=== PATIENT | male | born 2000 | race Caucasian/White ===

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

== ENCOUNTER 2020-10-05 17:37 | Emergency (ER) | payer MEDICAID, OTHER ==
[~2020-10-05] VITALS: Ht 177.8 cm; Wt 93.0 kg
--- NOTE | 2020-10-05 17:59 | ED General ---
General Chief Complaint: Neurological Problems Stated Complaint: SEIZURE ACTIVITY Source of Information: Patient History of Present Illness Date Seen by Provider: Oct 05, 2020 Time Seen by Provider: 17:50 Initial Comments PT ARRIVES VIA POV FROM HOME WITH FEMALE S.O. C/O SYNCOPAL EPISODE AND "POSSIBLE SEIZURE" PT STATES HE HAD WOKEN UP FROM A NAP, AND WAS STILL LAYING IN BED, STATES HE FELT HIS RIGHT ARM START TO SHAKE A LITTLE AND THEN "PASSED OUT". GIRLFRIEND STATES HE WAS "CONVULSING AND HIS EYES ROLLED BACK"--EPISODE LASTED 2 MINUTES, AND THEN PT WOKE UP GIRLFRIEND STATES THAT "HE HAS NEVER CONVULSED BEFORE AND NEVER COMPLETELY LOST CONSCIOUSNESS BEFORE" THIS IS ONGOING PROBLEM FOR > 1 1/2 YEARS HAS NEVER SOUGHT CARE FOR THIS PROBLEM AT ANY TIME, NO INJURY FROM THE INCIDENT NO HEADACHE NO INCONTINENCE NO CONFUSION NO VISION CHANGES NO PARESTHESIAS OR MOTOR DEFICITS NO GI SYMPTOMS NO CHEST PAIN NO PALPITATIONS NO SHORTNESS OF BREATH STATES "I JUST FEEL A LITTLE OUT OF IT" HAS BEEN ON PSYCH MEDICATIONS SINCE 09/2019-NO RECENT MEDICATION OR DOSE CHANGES NO FEVER OR RECENT ILLNESS HAS NOT BEEN OUT IN THE HEAT HAS BEEN EATING AND DRINKING NORMALLY DENIES ANY NEW STRESSORS PT HAS RECEIVED F[employer]r [employer] F[employer]r COVID-19 VACCINE JUNE 2020 PT HAS A ROUTINE APPOINTMENT AT [facility] WITH KALPESH ALLISON ON Wednesday10/08/20 AND ROUTINE FOLLOW UP WITH [facility] ON Wednesday10/11/20 PCP: [facility], KALPESH ALLISON MENTAL HEALTH: [facility] Allergies and Home Medications Allergies Coded Allergies: No Known Drug Allergies (Unverified , 10/05/20) Patient Home Medication List Home Medication List Reviewed: Yes Review of Systems Review of Systems Constitutional: see HPI; No chills, No diaphoresis, No dizziness, No fever EENTM: no symptoms reported Respiratory: no symptoms reported Cardiovascular: No chest pain, No edema, No palpitations; syncope; No vascular heart diseas Gastrointestinal: no symptoms reported Genitourinary: no symptoms reported Musculoskeletal: no symptoms reported Skin: no symptoms reported Psychiatric/Neurological: See HPI; Denies Headache, Denies Numbness, Denies Paresthesia, Denies Tingling, Denies Weakness Hematologic/Lymphatic: No Symptoms Reported Immunological/Allergic: no symptoms reported Past Zecjodr-Ooiufn-Fzoogr Hx Patient Social History Tobacco Use?: No Smoking Status: Never a Smoker Use of E-Cig and/or Vaping Tal: Never a User Substance use?: Yes Substance type: Marijuana Substance frequency: Daily Alcohol Use?: Yes Alcohol Frequency: Several times a month Immunizations Up To Date First/Initial COVID19 Vaccinat: JUNE 2020 COVID19 Vaccine Caponizer: [facility] Seasonal Allergies Seasonal Allergies: No Past Medical History Surgeries: No Respiratory: No Cardiac: No Neurological: No Genitourinary: No Gastrointestinal: No Musculoskeletal: No Endocrine: No HEENT: No Cancer: No Psychosocial: Yes Anxiety, Depression Physical Exam Vital Signs Vital Signs - First Documented 10/05/20 17:47 Temp 36.9 Pulse 58 Resp 17 B/P (MAP) 122/85 (97) O2 Delivery Room Air Capillary Refill : Height, Weight, BMI Height: '" Weight: lbs. oz. kg; BMI Method: General Appearance: No Apparent Distress, WD/WN, Other (AMBULATED IN ON HIS OWN WITHOUT DIFFICULTY) HEENT: PERRL/EOMI, TMs Normal, Normal ENT Inspection, Pharynx Normal Neck: Full Range of Motion, Normal Inspection, Non Tender, Supple Respiratory: Normal Breath Sounds, No Accessory Muscle Use, No Respiratory Distress Cardiovascular: Regular Rate, Rhythm, No Edema, No Gallop, No JVD, No Murmur, Normal Peripheral Pulses Gastrointestinal: Non Tender, Soft Back: Normal Inspection Extremity: Normal Capillary Refill, Normal Inspection, No Pedal Edema Neurologic/Psychiatric: Alert, Oriented x3, No Motor/Sensory Deficits, Normal Mood/Affect, window framer II-XII Norm as Tested; No Abnormal Cerebellar Tests Skin: Normal Color, Warm/Dry; No Rash Progress/Results/Core Measures Suspected Sepsis SIRS Temperature: Pulse: Respiratory Rate: Laboratory Tests 10/05/20 18:06: White Blood Count 7.0 Blood Pressure / Mean: Laboratory Tests 10/05/20 18:06: Creatinine 1.01, Platelet Count 292, Total Bilirubin 0.4 Results/Orders Lab Results Laboratory Tests Test 10/05/20 18:06 10/05/20 18:53 Range/Units White Blood Count 7.0 4.3-11.0 10^3/uL Red Blood Count 5.05 4.30-5.52 10^6/uL Hemoglobin 15.5 13.3-17.7 g/dL Hematocrit 44 40-54 % Mean Corpuscular Volume 87 80-99 fL Mean Corpuscular Hemoglobin 31 25-34 pg Mean Corpuscular Hemoglobin Concent 35 32-36 g/dL Red Cell Distribution Width 12.0 10.0-14.5 % Platelet Count 292 130-400 10^3/uL Mean Platelet Volume 9.0 9.0-12.2 fL Immature Granulocyte % (Auto) 0 % Neutrophils (%) (Auto) 47 42-75 % Lymphocytes (%) (Auto) 39 12-44 % Monocytes (%) (Auto) 9 0-12 % Eosinophils (%) (Auto) 5 0-10 % Basophils (%) (Auto) 1 0-10 % Neutrophils # (Auto) 3.3 1.8-7.8 10^3/uL Lymphocytes # (Auto) 2.8 1.0-4.0 10^3/uL Monocytes # (Auto) 0.6 0.0-1.0 10^3/uL Eosinophils # (Auto) 0.3 0.0-0.3 10^3/uL Basophils # (Auto) 0.1 0.0-0.1 10^3/uL Immature Granulocyte # (Auto) 0.0 0.0-0.1 10^3/uL Sodium Level 145 135-145 MMOL/L Potassium Level 3.8 3.6-5.0 MMOL/L Chloride Level 105 98-107 MMOL/L Carbon Dioxide Level 26 21-32 MMOL/L Anion Gap 14 5-14 MMOL/L Blood Urea Nitrogen 12 7-18 MG/DL Creatinine 1.01 0.60-1.30 MG/DL Estimat Glomerular Filtration Rate 92 BUN/Creatinine Ratio 12 Glucose Level 81 70-105 MG/DL Calcium Level 9.5 8.5-10.1 MG/DL Corrected Calcium 9.3 8.5-10.1 MG/DL Magnesium Level 1.9 1.6-2.4 MG/DL Total Bilirubin 0.4 0.1-1.0 MG/DL Aspartate Amino Transf (AST/SGOT) 29 5-34 U/L Alanine Aminotransferase (ALT/SGPT) 59 H 0-55 U/L Alkaline Phosphatase 36 L 40-136 U/L Total Creatine Kinase 124 30-200 U/L Creatine Kinase MB 0.8 <6.6 NG/ML Myoglobin 25.6 10.0-92.0 NG/ML Troponin I < 0.028 <0.028 NG/ML C-Reactive Protein High Sensitivity 0.10 0.00-0.50 MG/DL Total Protein 7.7 6.4-8.2 GM/DL Albumin 4.2 3.2-4.5 GM/DL TSH [place] Testing 1.87 0.35-4.94 UIU/ML Serum Alcohol < 10 <10 MG/DL Urine Color YELLOW Urine Clarity CLEAR Urine pH 7.0 5-9 Urine Specific [place] 1.020 1.016-1.022 Urine Protein NEGATIVE NEGATIVE Urine Glucose (UA) NEGATIVE NEGATIVE Urine Ketones NEGATIVE NEGATIVE Urine Nitrite NEGATIVE NEGATIVE Urine Bilirubin NEGATIVE NEGATIVE Urine Urobilinogen 0.2 < = 1.0 MG/DL Urine Leukocyte Esterase NEGATIVE NEGATIVE Urine RBC (Auto) NEGATIVE NEGATIVE Urine RBC NONE /HPF Urine WBC RARE /HPF Urine Squamous Epithelial Cells RARE /HPF Urine Crystals PRESENT H /LPF Urine Amorphous Sediment MOD LUZ PHOSPHATE H /LPF Urine Bacteria FEW H /HPF Urine Casts NONE /LPF Urine Mucus NEGATIVE /LPF Urine Other FEW SPERM H /HPF Urine Culture Indicated YES Urine Opiates Screen NEGATIVE NEGATIVE Urine Oxycodone Screen NEGATIVE NEGATIVE Urine Methadone Screen NEGATIVE NEGATIVE Urine Propoxyphene Screen NEGATIVE NEGATIVE Urine Barbiturates Screen NEGATIVE NEGATIVE Ur Tricyclic Antidepressants Screen NEGATIVE NEGATIVE Urine Phencyclidine Screen NEGATIVE NEGATIVE Urine Amphetamines Screen NEGATIVE NEGATIVE Urine Methamphetamines Screen NEGATIVE NEGATIVE Urine Benzodiazepines Screen NEGATIVE NEGATIVE Urine Cocaine Screen NEGATIVE NEGATIVE Urine Cannabinoids Screen POSITIVE H NEGATIVE My Orders Orders - DANNI WOLFE DO Ct Head Wo (10/05/20 18:10) Creatine Kinase (10/05/20 18:10) Creatine Kinase Mb (10/05/20 18:10) Magnesium (10/05/20 18:10) Thyroid Analyzer (10/05/20 18:10) Myoglobin Serum (10/05/20 18:10) Ed Iv/Invasive Line Start (10/05/20 18:42) Lactated Ringers (Lr 1000 Ml Iv Solution (10/05/20 18:45) Medications Given in ED Current Medications Medications Dose Ordered Sig/Pedro Route Start Time Stop Time Status Last Admin Dose Admin Lactated Ringer's 1,000 ml @ 0 mls/hr Q0M ONCE IV 10/05/20 18:45 10/05/20 18:46 DC 10/05/20 18:52 999 MLS/HR Vital Signs/I&O 10/05/20 10/05/20 17:47 18:21 Temp 36.9 Pulse 58 57 62 75 Resp 17 B/P (MAP) 122/85 (97) 111/70 (84) 101/73 (82) 113/72 (86) O2 Delivery Room Air Capillary Refill : Progress Note : Progress Note ASYMPTOMATIC DURING ENTIRE ER STAY DISCUSSED AT LENGTH WITH PT AND GIRLFRIEND ABOUT POSSIBLE CAUSES, AND POSSIBLE NEED FOR NEUROLOGIST EVALUATION, WHICH CAN BE DONE THROUGH [facility], AND PT CAN DISCUSS THIS AT HIS APPOINTMENT ON WEDNESDAY WITH KALPESH ALLISON ADVISED OF NO DRIVING FOR A MINIMUM OF 6 MONTHS ECG Initial ECG Impression Date: Oct 05, 2020 Initial ECG Impression Time: 18:14 Initial ECG Rate: 53 Initial ECG Rhythm: Normal Sinus Diagnostic Imaging Comments CT HEAD--NO ACUTE PROCESS, PER RADIOLOGIST REPORT AT 1853 Reviewed: Reviewed by Me Departure Impression Primary Impression: Syncope Additional Impressions: Marijuana use REPORTED SEIZURE LIKE ACTIVITY Disposition: 01 HOME, SELF-CARE Condition: Stable Departure-Patient Inst. Decision time for Depature: 19:19 Referrals: [facility] (PCP) Primary Care Physician KEVIN ALLISON (Family) Primary Care Physician Patient Instructions: Drug Abuse and Drug Addiction (DC), Marijuana Use and Addiction (DC), Syncope (Fainting) (DC) Add. Discharge Instructions: NO MARIJUANA OR ANY OTHER DRUGS INCREASE YOUR FLUID INTAKE--WATER, BROTH, JELLO, GATORADE CONTINUE YOUR REGULAR MEDICATIONS PRESCRIBED FOLLOW UP WITH [facility] THIS WEEK FOR FURTHER CARE, SCHEDULED NO DRIVING UNTIL YOU ARE CLEARED BY All discharge instructions reviewed with patient and/or family. Voiced understanding. DANNI WOLFE DO Oct 05, 2020 17:59
[2020-10-05 18:13] LABS: BASOPHILS # (AUTO) 0.1 10^3/uL (0.0-0.1); BASOPHILS % (AUTO) 1 % (0-10); EOSINOPHILS # (AUTO) 0.3 10^3/uL (0.0-0.3); EOSINOPHILS % (AUTO) 5 % (0-10); HEMATOCRIT 44 % (40-54); HEMOGLOBIN 15.5 g/dL (13.3-17.7); LYMPHOCYTES # (AUTO) 2.8 10^3/uL (1.0-4.0); LYMPHOCYTES % (AUTO) 39 % (12-44); MEAN CORPUSCULAR HEMOGLOBIN 31 pg (25-34); MEAN CORPUSCULAR HGB CONC 35 g/dL (32-36); MEAN CORPUSCULAR VOLUME 87 fL (80-99); MONOCYTES # (AUTO) 0.6 10^3/uL (0.0-1.0); MONOCYTES % (AUTO) 9 % (0-12); NEUTROPHILS # (AUTO) 3.3 10^3/uL (1.8-7.8); NEUTROPHILS % (AUTO) 47 % (42-75); PLATELET COUNT 292 10^3/uL (130-400)
[2020-10-05 18:21] VITALS: BP_SYST 101; BP_SYST 111; BP_SYST 113; BP_DIAS 70; BP_DIAS 72; BP_DIAS 73
[2020-10-05 18:28] LABS: ALBUMIN 4.2 GM/DL (3.2-4.5); CHLORIDE 105 MMOL/L (98-107); POTASSIUM 3.8 MMOL/L (3.6-5.0); SODIUM 145 MMOL/L (135-145)
[2020-10-05 18:30] LABS: CALCIUM 9.5 MG/DL (8.5-10.1)
[2020-10-05 18:31] LABS: GLUCOSE 81 MG/DL (70-105); TOTAL PROTEIN 7.7 GM/DL (6.4-8.2)
[2020-10-05 18:32] LABS: CARBON DIOXIDE 26 MMOL/L (21-32)
[2020-10-05 18:33] LABS: BILIRUBIN,TOTAL 0.4 MG/DL (0.1-1.0)
[2020-10-05 18:34] LABS: ALKALINE PHOSPHATASE 36 U/L (40-136)
[2020-10-05 18:35] LABS: CREATININE SERUM 1.01 MG/DL (0.60-1.30); GFR ESTIMATED 92
[2020-10-05 18:36] LABS: BUN/CREATININE RATIO 12
[2020-10-05 18:37] LABS: MAGNESIUM 1.9 MG/DL (1.6-2.4)
[2020-10-05 18:38] LABS: ALANINE AMINOTRANSFERASE 59 U/L (0-55)
[2020-10-05] MEDS ORDERED: LACTATED RINGERS 1,000 ML IV ONE (18:45)
[2020-10-05 18:46] LABS: CREATINE KINASE MB 0.8 NG/ML (<6.6)
--- NOTE | 2020-10-05 18:47 | Diagnostic Imaging Report ---
EXAMINATION: CT head without contrast. TECHNIQUE: Multiple contiguous axial images were obtained through the brain without the use of intravenous contrast. All CT scans use one or more of the following dose optimizing techniques: automated exposure control, MA and/or KvP adjustment based on patient size and exam type or iterative reconstruction. HISTORY: Syncopal episode. Seizure like activity. COMPARISON: 08/24/2007. FINDINGS: No large acute territorial ischemia, mass or hemorrhage. No midline shift or mass effect. The ventricles, cortical sulci and basilar cisterns are patent and unremarkable. The orbits are normal. Paranasal sinuses are normal. Mastoid air cells are clear. No soft tissue abnormality is seen. No osseus lesion or fracture is seen. IMPRESSION: No large acute territorial ischemia, mass or hemorrhage. Dictated by: Dictated on workstation # [id number]
[2020-10-05 18:58] LABS: TSH (THYROID ANALYZER) 1.87 UIU/ML (0.35-4.94)
[2020-10-05 18:59] LABS: BILIRUBIN,URINE NEGATIVE (NEGATIVE); CLARITY,URINE CLEAR; COLOR,URINE YELLOW; GLUCOSE, URINE (UA) NEGATIVE (NEGATIVE); KETONES,URINE NEGATIVE (NEGATIVE); LEUKOCYTE ESTERASE ,URINE NEGATIVE (NEGATIVE); NITRITE,URINE NEGATIVE (NEGATIVE); PROTEIN,URINE NEGATIVE (NEGATIVE)
[2020-10-05 19:13] LABS: AMORPHOUS SEDIMENT,UR MOD AMOR PHOSPHATE /LPF; BACTERIA,URINE FEW /HPF; SQUAMOUS EPITHELIAL CELL,UR RARE /HPF; URINE OTHER FEW SPERM /HPF; WBC,URINE RARE /HPF
[2020-10-05 19:15] LABS: AMPHETAMINE SCREEN, URINE NEGATIVE (NEGATIVE); BARBITURATE SCREEN URINE NEGATIVE (NEGATIVE); BENZODIAZEPINES SCREEN URINE NEGATIVE (NEGATIVE); CANNABINOID SCREEN, URINE POSITIVE (NEGATIVE); COCAINE SCREEN URINE NEGATIVE (NEGATIVE); METHADONE STAT NEGATIVE (NEGATIVE); METHAMPHETAMINE SCREEN URINE S NEGATIVE (NEGATIVE); OPIATE SCREEN URINE NEGATIVE (NEGATIVE); OXYCODONE STAT NEGATIVE (NEGATIVE); PROPOXYPHENE STAT NEGATIVE (NEGATIVE); TRICYCLIC ANTIDEPRESSANTS SCRE NEGATIVE (NEGATIVE)
[2020-10-05 19:37] VITALS: BP 114/84
== END 2020-10-05 19:37 | disposition home or self-care (01) ==
LOC: EDUNIT# 17:37 → ER 17:40
DX: R55 Syncope and collapse (principal); F12.90 Cannabis use, unspecified, uncomplicated; R29.818 Other symptoms and signs involving the nervous system
CPT/HCPCS: 36415; 70450; 80053; 80306; 80320; 81000; 82550; 82553; 83735; 83874; 84443; 84484; 85025; 86141; 87088; 93005

== ENCOUNTER 2021-02-10 12:03 | Emergency (ER) | payer OTHER ==
[~2021-02-10] VITALS: Ht 175 cm; Wt 95.2 kg
[2021-02-10] MEDS ORDERED: LORazepam INJ 2 MG/ML (ATIVAN) VIAL IVP ONE (13:30)
--- NOTE | 2021-02-10 13:34 | ED Neurological Problem ---
General Chief Complaint: Neurological Problems Stated Complaint: SEIZURES Nursing Triage Note: pt presents to ed via pov from home with complaints of intermittent seizures. pt sig other reports pt is seeing a neurologist and recently had testing done but doesnt know the results yet. pt also stoppeed taking two psych meds for mood stability last week because he rean out. pt sig other reports what they are most concerned about is a small amount of blood that the pt spit up after the seizure on the way to ed. pt was able to stand and transfer self to ed cot without difficulty. Source: patient Exam Limitations: no limitations (MICHELLE DIAS APRN) History of Present Illness Date Seen by Provider: Feb 10, 2021 Time Seen by Provider: 13:31 Initial Comments To ER with seizure-like activity. He has been seen by neurology over at [place] and had MRI, EEG done last week and they They are awaiting those reports. Today he spent most of his time "out of it" and mentions some blood on her hand during one of his seizures. They are not sure where this originated. No bleeding since then. He stopped his psychiatric medications a week and a half ago which looks like it was fluoxetine and olanzapine based on external medication summary though he is not talking at the moment and does not know what they were. Timing/Duration: 1 week Associated Symptoms: denies symptoms (MICHELLE DIAS APRN) Allergies and Home Medications Allergies Coded Allergies: No Known Drug Allergies (Unverified , 10/05/20) Patient Home Medication List Home Medication List Reviewed: Yes (MICHELLE DIAS APRN) Divalproex Sodium (Depakote) 500 Mg Tablet.dr, 500 MG PO BID Prescribed by: MICHELLE DIAS on 02/10/21 1524 Review of Systems Review of Systems Constitutional: see HPI Eyes: No Symptoms Reported Respiratory: no symptoms reported Cardiovascular: no symptoms reported Genitourinary: no symptoms reported Musculoskeletal: no symptoms reported Skin: no symptoms reported Psychiatric/Neurological: See HPI Endocrine: No Symptoms Reported (MICHELLE DIAS APRN) Past Ciqdmeb-Fblukl-Zruecs Hx Patient Social History Tobacco Use?: Yes Tobacco type used: Cigarettes Smoking Status: Current Someday Smoker Use of E-Cig and/or Vaping Tal: Current Someday User Substance use?: Yes Substance type: Marijuana Substance frequency: Daily Alcohol Use?: Yes Alcohol Frequency: Rarely Pt feels they are or have been: No (MICHELLE DIAS APRN) Immunizations Up To Date First/Initial COVID19 Vaccinat: JUNE 2020 Second COVID19 Vaccination [place]: JUNE 2020 Third COVID19 Vaccination Date: JUNE 2020 COVID19 Vaccine Contract Administrator: alexandra (MICHELLE DIAS APRN) Seasonal Allergies Seasonal Allergies: No (MICHELLE DIAS APRN) Past Medical History Surgery/Hospitalization HX: seizures Surgeries: No Respiratory: No Cardiac: No Neurological: No Genitourinary: No Gastrointestinal: No Musculoskeletal: No Endocrine: No HEENT: No Cancer: No Psychosocial: Yes Anxiety, Depression (MICHELLE DIAS APRN) Physical Exam Vital Signs Vital Signs - First Documented 02/10/21 12:34 Temp 36.4 Pulse 63 Resp 18 B/P (MAP) 129/85 (100) Pulse Ox 97 (TRINI ROA MD) Vital Signs Capillary Refill : Less Than 3 Seconds (MICHELLE DIAS APRN) Height, Weight, BMI Height: '" Weight: lbs. oz. kg; 31.00 BMI Method: General Appearance: WD/WN, no apparent distress, other (Deep rapid breathing, reported to his that he cannot feel either of his hands though he is nonverbal currently. He keeps his eyes closed. When I lift his eyelids open he is noted to have crossed eyes. Let them close again and when I try to open his mouth with the tongue blade he opens his eyes which are no longer crossed.) Neck: non-tender, full range of motion Respiratory: no respiratory distress, no accessory muscle use Gastrointestinal: normal bowel sounds, non tender Extremities: normal range of motion, non-tender Neurologic/Psychiatric: alert [place] Nerves: normal hearing, normal speech, PERRL Skin: normal color, warm/dry (MICHELLE DIAS APRN) Progress/Results/Core Measures Results/Orders Lab Results Laboratory Tests Test 02/10/21 13:43 02/10/21 14:52 Range/Units White Blood Count 7.1 4.3-11.0 10^3/uL Red Blood Count 5.01 4.30-5.52 10^6/uL Hemoglobin 15.4 13.3-17.7 g/dL Hematocrit 44 40-54 % Mean Corpuscular Volume 88 80-99 fL Mean Corpuscular Hemoglobin 31 25-34 pg Mean Corpuscular Hemoglobin Concent 35 32-36 g/dL Red Cell Distribution Width 12.5 10.0-14.5 % Platelet Count 315 130-400 10^3/uL Mean Platelet Volume 8.9 L 9.0-12.2 fL Immature Granulocyte % (Auto) 1 % Neutrophils (%) (Auto) 50 42-75 % Lymphocytes (%) (Auto) 33 12-44 % Monocytes (%) (Auto) 11 0-12 % Eosinophils (%) (Auto) 6 0-10 % Basophils (%) (Auto) 1 0-10 % Neutrophils # (Auto) 3.5 1.8-7.8 10^3/uL Lymphocytes # (Auto) 2.3 1.0-4.0 10^3/uL Monocytes # (Auto) 0.8 0.0-1.0 10^3/uL Eosinophils # (Auto) 0.4 H 0.0-0.3 10^3/uL Basophils # (Auto) 0.0 0.0-0.1 10^3/uL Immature Granulocyte # (Auto) 0.0 0.0-0.1 10^3/uL Sodium Level 136 135-145 MMOL/L Potassium Level 4.2 3.6-5.0 MMOL/L Chloride Level 103 98-107 MMOL/L Carbon Dioxide Level 24 21-32 MMOL/L Anion Gap 9 5-14 MMOL/L Blood Urea Nitrogen 12 7-18 MG/DL Creatinine 0.79 0.60-1.30 MG/DL Estimat Glomerular Filtration Rate 123 BUN/Creatinine Ratio 15 Glucose Level 85 70-105 MG/DL Calcium Level 8.9 8.5-10.1 MG/DL Corrected Calcium 8.8 8.5-10.1 MG/DL Total Bilirubin 0.4 0.1-1.0 MG/DL Aspartate Amino Transf (AST/SGOT) 55 H 5-34 U/L Alanine Aminotransferase (ALT/SGPT) 88 H 0-55 U/L Alkaline Phosphatase 43 40-136 U/L Total Protein 8.1 6.4-8.2 GM/DL Albumin 4.1 3.2-4.5 GM/DL Urine Color YELLOW Urine Clarity CLEAR Urine pH 7.0 5-9 Urine Specific [place] 1.020 1.016-1.022 Urine Protein NEGATIVE NEGATIVE Urine Glucose (UA) NEGATIVE NEGATIVE Urine Ketones NEGATIVE NEGATIVE Urine Nitrite NEGATIVE NEGATIVE Urine Bilirubin NEGATIVE NEGATIVE Urine Urobilinogen 0.2 < = 1.0 MG/DL Urine Leukocyte Esterase NEGATIVE NEGATIVE Urine RBC (Auto) NEGATIVE NEGATIVE Urine RBC NONE /HPF Urine WBC RARE /HPF Urine Squamous Epithelial Cells RARE /HPF Urine Crystals NONE /LPF Urine Bacteria FEW H /HPF Urine Casts NONE /LPF Urine Mucus SMALL H /LPF Urine Culture Indicated YES Urine Opiates Screen NEGATIVE NEGATIVE Urine Oxycodone Screen NEGATIVE NEGATIVE Urine Methadone Screen NEGATIVE NEGATIVE Urine Propoxyphene Screen NEGATIVE NEGATIVE Urine Barbiturates Screen NEGATIVE NEGATIVE Ur Tricyclic Antidepressants Screen NEGATIVE NEGATIVE Urine Phencyclidine Screen NEGATIVE NEGATIVE Urine Amphetamines Screen NEGATIVE NEGATIVE Urine Methamphetamines Screen NEGATIVE NEGATIVE Urine Benzodiazepines Screen NEGATIVE NEGATIVE Urine Cocaine Screen NEGATIVE NEGATIVE Urine Cannabinoids Screen POSITIVE H NEGATIVE (TRINI ROA MD) Medications Given in ED Current Medications Medications Dose Ordered Sig/Pedro Route Start Time Stop Time Status Last Admin Dose Admin Lorazepam 1 mg ONCE ONCE IVP 02/10/21 13:30 02/10/21 13:31 DC 02/10/21 13:39 1 MG (TRINI ROA MD) Vital Signs/I&O 02/10/21 02/10/21 12:34 15:26 Temp 36.4 Pulse 63 66 Resp 18 18 B/P (MAP) 129/85 (100) 122/78 Pulse Ox 97 96 (TRINI ROA MD) Blood Pressure Mean: 100 Departure Communication (Admissions) 1458-patients states that he was on olanzapine and Zyprexa for about 1 month before discontinuing it. Did not notice any improvement while on it. They report that this was for "mood stabilization" but they do not know what the underlying diagnosis was. She believes it to just be anxiety and depression. Depakote would be a good choice for him. No seizure like activity. After 1 mg of IV lorazepam he is lethargic but arousable to verbal stimuli and moves his hands to which his replies "oh your hands are working again, that improvement" as shortly after he arrived he complained of alleged loss of motor function to both hands to his but I was unable to get this information out of him as he would not talk.. He opens his eyes during conversation now and they are still not crossed. He was able to stand to give us a urine sample. (MICHELLE DIAS APRN) Impression Primary Impression: Seizure-like activity Disposition: 01 HOME, SELF-CARE Condition: Stable Departure-Patient Inst. Decision time for Depature: 14:59 (MICHELLE DIAS APRN) Referrals: [facility] (PCP) Primary Care Physician KEVIN ALLISON (Family) Primary Care Physician Patient Instructions: NO INSTRUCTIONS GIVEN Add. Discharge Instructions: 1. Return to ER for any concerns 2. Follow-up with your doctor next week All discharge instructions reviewed with patient and/or family. Voiced understanding. Scripts Divalproex Sodium (Depakote) 500 Mg Tablet. 500 MG PO BID, #20 TAB . Prov: MICHELLE DIAS APRN 02/10/21 ATTENDING PHYSICIAN NOTE: I was physically present as attending physician in the emergency department during the care of this patient, but I was not directly involved in the decision making or delivery of care for this patient. (TRINI ROA MD) MICHELLE DIAS APRN Feb 10, 2021 13:34 TRINI ROA MD Feb 10, 2021 18:28
[2021-02-10 13:54] LABS: BASOPHILS % (AUTO) 1 % (0-10); EOSINOPHILS # (AUTO) 0.4 10^3/uL (0.0-0.3); EOSINOPHILS % (AUTO) 6 % (0-10); HEMATOCRIT 44 % (40-54); HEMOGLOBIN 15.4 g/dL (13.3-17.7); LYMPHOCYTES # (AUTO) 2.3 10^3/uL (1.0-4.0); LYMPHOCYTES % (AUTO) 33 % (12-44); MEAN CORPUSCULAR HEMOGLOBIN 31 pg (25-34); MEAN CORPUSCULAR HGB CONC 35 g/dL (32-36); MEAN CORPUSCULAR VOLUME 88 fL (80-99); MEAN PLATELET VOLUME 8.9 fL (9.0-12.2); MONOCYTES # (AUTO) 0.8 10^3/uL (0.0-1.0); MONOCYTES % (AUTO) 11 % (0-12); NEUTROPHILS # (AUTO) 3.5 10^3/uL (1.8-7.8); NEUTROPHILS % (AUTO) 50 % (42-75); PLATELET COUNT 315 10^3/uL (130-400); WHITE BLOOD COUNT 7.1 10^3/uL (4.3-11.0)
[2021-02-10 14:04] LABS: ALBUMIN 4.1 GM/DL (3.2-4.5); POTASSIUM 4.2 MMOL/L (3.6-5.0)
[2021-02-10 14:05] LABS: CALCIUM 8.9 MG/DL (8.5-10.1)
[2021-02-10 14:06] LABS: TOTAL PROTEIN 8.1 GM/DL (6.4-8.2)
[2021-02-10 14:08] LABS: BILIRUBIN,TOTAL 0.4 MG/DL (0.1-1.0)
[2021-02-10 14:10] LABS: CREATININE SERUM 0.79 MG/DL (0.60-1.30)
[2021-02-10 14:55] LABS: BILIRUBIN,URINE NEGATIVE (NEGATIVE); CLARITY,URINE CLEAR; COLOR,URINE YELLOW; GLUCOSE, URINE (UA) NEGATIVE (NEGATIVE); KETONES,URINE NEGATIVE (NEGATIVE); LEUKOCYTE ESTERASE ,URINE NEGATIVE (NEGATIVE); NITRITE,URINE NEGATIVE (NEGATIVE); PROTEIN,URINE NEGATIVE (NEGATIVE)
[2021-02-10] MEDS ORDERED: DIVA500T PO ×2 (15:01→15:24)
[2021-02-10 15:06] LABS: BACTERIA,URINE FEW /HPF; SQUAMOUS EPITHELIAL CELL,UR RARE /HPF; WBC,URINE RARE /HPF
[2021-02-10 15:08] LABS: AMPHETAMINE SCREEN, URINE NEGATIVE (NEGATIVE); BARBITURATE SCREEN URINE NEGATIVE (NEGATIVE); BENZODIAZEPINES SCREEN URINE NEGATIVE (NEGATIVE); CANNABINOID SCREEN, URINE POSITIVE (NEGATIVE); COCAINE SCREEN URINE NEGATIVE (NEGATIVE); METHADONE STAT NEGATIVE (NEGATIVE); METHAMPHETAMINE SCREEN URINE S NEGATIVE (NEGATIVE); OPIATE SCREEN URINE NEGATIVE (NEGATIVE); OXYCODONE STAT NEGATIVE (NEGATIVE); PROPOXYPHENE STAT NEGATIVE (NEGATIVE); TRICYCLIC ANTIDEPRESSANTS SCRE NEGATIVE (NEGATIVE)
[2021-02-10 15:26] VITALS: BP 122/78
[2021-02-10] MEDS ORDERED: HYDR50CA3 PO (22:22)
== END 2021-02-10 15:26 | disposition home or self-care (01) ==
LOC: EDUNIT# 12:03 → ER 12:04
DX: R25.9 Unspecified abnormal involuntary movements (principal); F12.20 Cannabis dependence, uncomplicated; F41.9 Anxiety disorder, unspecified; F32.9 Major depressive disorder, single episode, unspecified; F17.210 Nicotine dependence, cigarettes, uncomplicated; Z79.899 Other long term (current) drug therapy
CPT/HCPCS: 36415; 80053; 80306; 81000; 85025; 87088

== ENCOUNTER 2021-02-10 20:50 | Emergency (ER) | payer OTHER ==
[~2021-02-10] VITALS: Ht 175.2 cm; Wt 95.2 kg
[~2021-02-10 20:50] MED LIST: DIVA500T PO
[2021-02-10 21:29] LABS: BASOPHILS # (AUTO) 0.1 10^3/uL (0.0-0.1); BASOPHILS % (AUTO) 1 % (0-10); EOSINOPHILS # (AUTO) 0.4 10^3/uL (0.0-0.3); EOSINOPHILS % (AUTO) 5 % (0-10); HEMATOCRIT 48 % (40-54); HEMOGLOBIN 16.3 g/dL (13.3-17.7); LYMPHOCYTES % (AUTO) 34 % (12-44); MEAN CORPUSCULAR HEMOGLOBIN 30 pg (25-34); MEAN CORPUSCULAR HGB CONC 34 g/dL (32-36); MEAN CORPUSCULAR VOLUME 89 fL (80-99); MEAN PLATELET VOLUME 8.8 fL (9.0-12.2); MONOCYTES % (AUTO) 11 % (0-12); NEUTROPHILS # (AUTO) 4.4 10^3/uL (1.8-7.8); NEUTROPHILS % (AUTO) 50 % (42-75); PLATELET COUNT 355 10^3/uL (130-400); WHITE BLOOD COUNT 8.9 10^3/uL (4.3-11.0)
[2021-02-10] MEDS ORDERED: LACTATED RINGERS 1,000 ML IV ONE (21:30)
--- NOTE | 2021-02-10 21:30 | ED General ---
General Stated Complaint: SEIZURES Source of Information: Patient, Old Records History of Present Illness Date Seen by Provider: Feb 10, 2021 Time Seen by Provider: 19:05 Initial Comments PT ARRIVES VIA POV FROM HOME, WITH GIRLFRIEND AND HIS MOTHER ( GIRLFRIEND BECAME EXTREMELY BELLIGERENT ON ARRIVAL IN THE ROOM AND SHE WAS ASKED TO LEAVE BY ER STAFF, AND THEN PT'S MOTHER CAME IN ROOM AND WAS VERY CALM AND COOPERATIVE AND RESPECTFUL TO STAFF) PT SEEN IN ER THIS AFTER NOON FOR SEIZURE LIKE ACTIVITY, WORK UP NEGATIVE AT THAT TIME. WAS GIVEN RX FOR DEPAKOTE, WHICH HE HAS NOT TAKEN YET. PT WAS GIVEN LORAZEPAM WHILE IN ER AT THAT TIME. PT RETURNS TONIGHT, BECAUSE HE HAS BEEN "UNRESPONSIVE" AND "OUT OF IT" ALL DAY--PT IS AWAKE AND WALKS INTO ER ON HIS OWN, AND IS TALKING AND IS ALERT AND ORIENTED X 4 AND VERY COOPERATIVE PT HAS HISTORY OF PSYCH ISSUES AND STOPPED TAKING / RAN OUT OF HIS PSYCH MEDICATIONS 1 1/2 WEEKS AGO--FLUOXETINE AND OLANZAPINE--AND PT AND MOTHER REPORT THAT [facility] WILL NOT REFILL THEM--HAD ONLY BEEN ON THEM FOR A MONTH AND THEN RAN OUT AND DID NOT FOLLOW UP PT HAS NOT SEEN ANYONE FROM [facility] OR WITH [facility] IN OVER A MONTH PT ADMITS TO BEING UNDER MUCH STRESS--FINANCIALLY AND WITH GIRLFRIEND. PT IS ALSO IN THE PROCESS OF BEING EVALUATED BY AN UNKNOWN NEUROLOGIST AT [facility] IN [place] FOR POSSIBLE SEIZURES--HAS BEEN HAVING "EPISODES" FOR OVER 1 1/2 YEARS, AND HAS NOT SEEN A NEUROLOGIST UNTIL PT HAS SEEN HIM ONE TIME AND HAD OUTPATIENT MRI AND EEG DONE LAST WEEK, AND HAS A FOLLOW UP APPOINTMENT IN FEBRUARY--RESULTS OF TESTS ARE NOT KNOWN AT THIS TIME. PT HAS HAD REPORTED "SEIZURE-LIKE" ACTIVITY SEVERAL TIMES TODAY. THERE IS NO INCONTINENCE OR INJURY WITH ANY OF THESE EPISODES. NO HEADACHE NO DIZZINESS NO VISION CHANGES NO NAUSEA/VOMITING NO PARESTHESIAS OR MOTOR DEFICITS NO FEVER OR RECENT ILLNESS NO KNOWN SICK CONTACTS PT HAS HAD FAYE/FAYE COVID-19 VACCINE X 1 IN JUNE 2020 PCP: [facility]: [facility] NEUROLOGIST--UNKNOWN NAME OF AT [facility] Allergies and Home Medications Allergies Coded Allergies: No Known Drug Allergies (Unverified , 10/05/20) Patient Home Medication List Home Medication List Reviewed: Yes Divalproex Sodium (Depakote) 500 Mg Tablet.dr, 500 MG PO BID Prescribed by: MICHELLE DIAS on 02/10/21 1524 Hydroxyzine Pamoate (Hydroxyzine Pamoate) 50 Mg Capsule, 50 MG PO Q6H PRN for ANXIETY Prescribed by: DANNI WOLFE on 02/10/21 2222 Review of Systems Review of Systems Constitutional: no symptoms reported EENTM: no symptoms reported Respiratory: no symptoms reported Cardiovascular: no symptoms reported Gastrointestinal: no symptoms reported Genitourinary: no symptoms reported Musculoskeletal: no symptoms reported Skin: no symptoms reported Psychiatric/Neurological: See HPI Hematologic/Lymphatic: No Symptoms Reported Immunological/Allergic: no symptoms reported Past Exakvls-Ddmmfq-Lyccba Hx Patient Social History Tobacco Use?: No Substance use?: Yes Substance type: Marijuana Substance frequency: Daily Alcohol Use?: Yes Alcohol Frequency: Several times a month Immunizations Up To Date First/Initial COVID19 Vaccinat: JUNE 2020 Second COVID19 Vaccination [place]: JUNE 2020 Third COVID19 Vaccination Date: JUNE 2020 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 oz. kg; 31.00 BMI Method: General Appearance: No Apparent Distress, WD/WN, Other (PT KEEPS EYES CLOSED AT ALL TIMES, OCCASIONALLY TEARFUL. DOES NOT MAKE ANY EYE CONTACT AT ALL.. PT ABLE TO ANSWER ALL QUESTIONS APPROPRIATELY, BUT APPEARS VERY ANXIOUS AND VOICE IS VERY SOFT AND TREMULOUS. PT IS HYPERVENTILATING. HAIR IS VERY LONG. ) HEENT: PERRL/EOMI Neck: Normal Inspection Respiratory: Normal Breath Sounds, No Accessory Muscle Use, No Respiratory Distress, Other (PT IS HYPERVENTILATING ON ARRIVAL) Cardiovascular: Regular Rate, Rhythm, No Edema, No JVD, No Murmur Gastrointestinal: Non Tender, Soft Back: Normal Inspection Extremity: Normal Inspection Neurologic/Psychiatric: Alert, Oriented x3, No Motor/Sensory Deficits, statistician mathematical II- XII Norm as Tested, Other (SPEECH CLEAR AND GAIT STEADY) Skin: Normal Color, Warm/Dry Progress/Results/Core Measures Suspected Sepsis SIRS Temperature: Pulse: Respiratory Rate: Laboratory Tests 02/10/21 21:10: White Blood Count 8.9 Blood Pressure / Mean: Laboratory Tests 02/10/21 21:10: Creatinine 1.02, Platelet Count 355, Total Bilirubin 0.4 Results/Orders Lab Results Laboratory Tests Test 02/10/21 21:10 02/10/21 21:29 Range/Units White Blood Count 8.9 4.3-11.0 10^3/uL Red Blood Count 5.41 4.30-5.52 10^6/uL Hemoglobin 16.3 13.3-17.7 g/dL Hematocrit 48 40-54 % Mean Corpuscular Volume 89 80-99 fL Mean Corpuscular Hemoglobin 30 25-34 pg Mean Corpuscular Hemoglobin Concent 34 32-36 g/dL Red Cell Distribution Width 12.6 10.0-14.5 % Platelet Count 355 130-400 10^3/uL Mean Platelet Volume 8.8 L 9.0-12.2 fL Immature Granulocyte % (Auto) 0 % Neutrophils (%) (Auto) 50 42-75 % Lymphocytes (%) (Auto) 34 12-44 % Monocytes (%) (Auto) 11 0-12 % Eosinophils (%) (Auto) 5 0-10 % Basophils (%) (Auto) 1 0-10 % Neutrophils # (Auto) 4.4 1.8-7.8 10^3/uL Lymphocytes # (Auto) 3.0 1.0-4.0 10^3/uL Monocytes # (Auto) 1.0 0.0-1.0 10^3/uL Eosinophils # (Auto) 0.4 H 0.0-0.3 10^3/uL Basophils # (Auto) 0.1 0.0-0.1 10^3/uL Immature Granulocyte # (Auto) 0.0 0.0-0.1 10^3/uL Sodium Level 140 135-145 MMOL/L Potassium Level 3.6 3.6-5.0 MMOL/L Chloride Level 102 98-107 MMOL/L Carbon Dioxide Level 24 21-32 MMOL/L Anion Gap 14 5-14 MMOL/L Blood Urea Nitrogen 13 7-18 MG/DL Creatinine 1.02 0.60-1.30 MG/DL Estimat Glomerular Filtration Rate 91 BUN/Creatinine Ratio 13 Glucose Level 96 70-105 MG/DL Calcium Level 9.4 8.5-10.1 MG/DL Corrected Calcium 9.2 8.5-10.1 MG/DL Magnesium Level 2.2 1.6-2.4 MG/DL Total Bilirubin 0.4 0.1-1.0 MG/DL Aspartate Amino Transf (AST/SGOT) 52 H 5-34 U/L Alanine Aminotransferase (ALT/SGPT) 93 H 0-55 U/L Alkaline Phosphatase 58 40-136 U/L Total Creatine Kinase 111 30-200 U/L Creatine Kinase MB 0.6 <6.6 NG/ML Myoglobin 24.5 10.0-92.0 NG/ML Total Protein 8.5 H 6.4-8.2 GM/DL Albumin 4.3 3.2-4.5 GM/DL Acetaminophen Level < 10 L 10-30 UG/ML Serum Alcohol < 10 <10 MG/DL Urine Color YELLOW Urine Clarity CLEAR Urine pH 6.5 5-9 Urine Specific [place] 1.025 H 1.016-1.022 Urine Protein NEGATIVE NEGATIVE Urine Glucose (UA) NEGATIVE NEGATIVE Urine Ketones NEGATIVE NEGATIVE Urine Nitrite NEGATIVE NEGATIVE Urine Bilirubin NEGATIVE NEGATIVE Urine Urobilinogen 0.2 < = 1.0 MG/DL Urine Leukocyte Esterase NEGATIVE NEGATIVE Urine RBC (Auto) NEGATIVE NEGATIVE Urine RBC NONE /HPF Urine WBC NONE /HPF Urine Squamous Epithelial Cells NONE /HPF Urine Renal Epithelial Cells NONE /HPF Urine Crystals NONE /LPF Urine Bacteria NEGATIVE /HPF Urine Casts NONE /LPF Urine Mucus SMALL H /LPF Urine Culture Indicated NO Urine Opiates Screen NEGATIVE NEGATIVE Urine Oxycodone Screen NEGATIVE NEGATIVE Urine Methadone Screen NEGATIVE NEGATIVE Urine Propoxyphene Screen NEGATIVE NEGATIVE Urine Barbiturates Screen NEGATIVE NEGATIVE Ur Tricyclic Antidepressants Screen NEGATIVE NEGATIVE Urine Phencyclidine Screen NEGATIVE NEGATIVE Urine Amphetamines Screen NEGATIVE NEGATIVE Urine Methamphetamines Screen NEGATIVE NEGATIVE Urine Benzodiazepines Screen POSITIVE H NEGATIVE Urine Cocaine Screen NEGATIVE NEGATIVE Urine Cannabinoids Screen POSITIVE H NEGATIVE My Orders Orders - DANNI WOLFE DO Ed Iv/Invasive Line Start (02/10/21 21:21) Monitor-Rhythm Ecg Trace Only (02/10/21 21:21) Acetaminophen (02/10/21 21:21) Alcohol (02/10/21 21:21) Cbc With Automated Diff (02/10/21 21:21) Comprehensive Metabolic Panel (02/10/21 21:21) Creatine Kinase (02/10/21 21:21) Creatine Kinase Mb (02/10/21 21:21) Drug Screen Stat (Urine) (02/10/21 21:21) Magnesium (02/10/21 21:21) Ua Culture If Indicated (02/10/21 21:21) Myoglobin Serum (02/10/21 21:21) Ed Iv/Invasive Line Start (02/10/21 21:21) Lactated Ringers (Lr 1000 Ml Iv Solution (02/10/21 21:30) Rx-Hydroxyzine Pamoate (Rx-Vistaril) (02/10/21 22:20) Rx-Hydroxyzine Pamoate (Rx-Vistaril) (02/10/21 22:26) Medications Given in ED Current Medications Medications Dose Ordered Sig/Pedro Route Start Time Stop Time Status Last Admin Dose Admin Lactated Ringer's 1,000 ml @ 0 mls/hr Q0M ONCE IV 02/10/21 21:30 02/10/21 21:31 DC 02/10/21 21:28 1,000 MLS/HR Vital Signs/I&O 02/10/21 02/10/21 21:00 22:39 Temp 36.4 Pulse 101 85 Resp 18 14 B/P (MAP) 132/90 (104) 124/83 Pulse Ox 99 98 O2 Delivery Room Air Room Air Capillary Refill : Progress Note : Progress Note PT EVENTUALLY CALMED, ESPECIALLY WITH MOTHER IN ROOM MOTHER STATES THAT SHE USED TO HAVE "ANXIETY ATTACKS SO BAD TO WHERE I WOULD HAVE A SEIZURE" "EVERYBODY IN MY FAMILY HAS THAT" NO ONE IN FAMILY HAS ACTUALLY BEEN DIAGNOSED WITH EPILEPSY--ALL WITH ANXIETY /MENTAL HEALTH DISORDERS. MOM REPORTS THAT HE HAS BEEN UNDER ALOT OF STRESS LATELY. PT LIVES WITH GIRLFRIEND. RN REPORTED THAT ON ARRIVAL, PT HAD A COUPLE OF EPISODES OF MINOR "SHAKING" WHICH STOPPED IMMEDIATELY WHEN TALKED TO AND COACHED ON BREATHING OR WITH TACTILE STIMULI, --THIS WOULD BE PRECEDED BY INCREASING HYPERVENTILATION, THEN WOULD START "SHAKING" --NOT TONIC-CLONIC ACTIVITY, OR ANYTHING THAT ACTUALLY RESEMBLED A TRUE SEIZURE. NO POST ICTAL SYMPTOMS--PT IMMEDIATELY RETURNED TO BASELINE HE CALMED SOME. NO INCONTINENCE, NO TONGUE BITING, NO INJURIES. PT DID NOT DO THIS IN MY PRESENCE, OR AT ANY TIME FOR REMAINDER OF ER STAY. MOM IS COMFORTABLE TAKING PT HOME. REINFORCED THAT PT SHOULD NOT DRIVE OR OPERATE ANY MACHINERY AND AVOID RIDING ON ANYTHING WITH WHEELS, SUCH BICYCLE, SKATEBOARD, ROLLER SKATES, ETC. Departure Impression Primary Impression: Seizure-like activity Additional Impressions: Anxiety Non-compliance DAILY MARIJUANA USE Disposition: HOME, SELF-CARE Condition: Improved Departure-Patient Inst. Decision time for Depature: 22:10 Referrals: [facility] (PCP) Primary Care Physician KEVIN ALLISON (Family) Primary Care Physician Patient Instructions: Anxiety, Adult ED, Seizures, Adult (DC), Tips to Help You [place] in Uncertain Times Add. Discharge Instructions: HOME, REST LOTS OF CLEAR LIQUIDS NO DRIVING AND AVOID RIDING ON ANYTHING WITH WHEELS SUCH BICYCLES, ETC. CALL [facility] AND WITH [facility] THIS WEEK FOR FURTHER CARE, AND TO GET BACK ON YOUR MEDICATIONS FOLLOW UP THE NEUROLOGIST SCHEDULED RETURN TO ER IF SYMPTOMS WORSEN Scripts Hydroxyzine Pamoate (Hydroxyzine Pamoate) 50 Mg Capsule 50 MG PO Q6H PRN for ANXIETY, #15 CAP Prov: DANNI WOLFE DO 02/10/21 DANNI WOLFE DO Feb 10, 2021 21:29
[2021-02-10 21:41] LABS: ALBUMIN 4.3 GM/DL (3.2-4.5); CHLORIDE 102 MMOL/L (98-107); POTASSIUM 3.6 MMOL/L (3.6-5.0); SODIUM 140 MMOL/L (135-145)
[2021-02-10 21:42] LABS: BILIRUBIN,URINE NEGATIVE (NEGATIVE); CLARITY,URINE CLEAR; COLOR,URINE YELLOW; GLUCOSE, URINE (UA) NEGATIVE (NEGATIVE); KETONES,URINE NEGATIVE (NEGATIVE); LEUKOCYTE ESTERASE ,URINE NEGATIVE (NEGATIVE); NITRITE,URINE NEGATIVE (NEGATIVE); PH,URINE 6.5 (5-9); PROTEIN,URINE NEGATIVE (NEGATIVE)
[2021-02-10 21:42] LABS: CALCIUM 9.4 MG/DL (8.5-10.1)
[2021-02-10 21:44] LABS: GLUCOSE 96 MG/DL (70-105); TOTAL PROTEIN 8.5 GM/DL (6.4-8.2)
[2021-02-10 21:45] LABS: BILIRUBIN,TOTAL 0.4 MG/DL (0.1-1.0); CARBON DIOXIDE 24 MMOL/L (21-32)
[2021-02-10 21:47] LABS: ALKALINE PHOSPHATASE 58 U/L (40-136); CREATININE SERUM 1.02 MG/DL (0.60-1.30); GFR ESTIMATED 91
[2021-02-10 21:48] LABS: BUN/CREATININE RATIO 13
[2021-02-10 21:50] LABS: ALANINE AMINOTRANSFERASE 93 U/L (0-55)
[2021-02-10 21:51] LABS: ACETAMINOPHEN < 10 UG/ML (10-30); CREATINE KINASE 111 U/L (30-200); MAGNESIUM 2.2 MG/DL (1.6-2.4)
[2021-02-10 21:53] LABS: BACTERIA,URINE NEGATIVE /HPF
[2021-02-10 21:54] LABS: AMPHETAMINE SCREEN, URINE NEGATIVE (NEGATIVE); BARBITURATE SCREEN URINE NEGATIVE (NEGATIVE); BENZODIAZEPINES SCREEN URINE POSITIVE (NEGATIVE); CANNABINOID SCREEN, URINE POSITIVE (NEGATIVE); COCAINE SCREEN URINE NEGATIVE (NEGATIVE); METHADONE STAT NEGATIVE (NEGATIVE); METHAMPHETAMINE SCREEN URINE S NEGATIVE (NEGATIVE); OPIATE SCREEN URINE NEGATIVE (NEGATIVE); OXYCODONE STAT NEGATIVE (NEGATIVE); PROPOXYPHENE STAT NEGATIVE (NEGATIVE); TRICYCLIC ANTIDEPRESSANTS SCRE NEGATIVE (NEGATIVE)
[2021-02-10 21:58] LABS: CREATINE KINASE MB 0.6 NG/ML (<6.6)
[2021-02-10] MEDS ORDERED: HYDR50CA3 PO (22:22)
[2021-02-10 22:39] VITALS: BP 124/83
== END 2021-02-10 22:39 | disposition home or self-care (01) ==
LOC: EDUNIT# 20:50 → ER 20:51
DX: R25.9 Unspecified abnormal involuntary movements (principal); F41.0 Panic disorder [episodic paroxysmal anxiety]; F12.20 Cannabis dependence, uncomplicated; T43.226A Underdosing of selective serotonin reuptake inhibitors, initial encounter; T43.596A Underdosing of other antipsychotics and neuroleptics, initial encounter; F32.9 Major depressive disorder, single episode, unspecified; Z91.14 Patient's other noncompliance with medication regimen; Z79.899 Other long term (current) drug therapy
CPT/HCPCS: 36415; 80053; 80306; 80320; 80329; 81000; 82550; 82553; 83735; 83874; 85025; 93041